=== PATIENT | female | born 1950 | race Caucasian/White ===

== ENCOUNTER → 2017-08-07 | Outpatient (CLI) | payer BC ==
[~2017-08-07] MED LIST: ACET-1138 PO; CALC-20 PO; OMEP20CA9 PO; RXC5 PO; TMPOPS15 OPB
--- NOTE | 2017-08-08 15:59 | MAMMOGRAPHY REPORT ---
BILATERAL DIGITAL SCREENING MAMMOGRAM TOMOSYNTHESIS WITH CAD: 08/07/2017 CLINICAL HISTORY: Routine screening examination. TECHNIQUE: Breast tomosynthesis in addition to standard 2D mammography was performed. Current study was also evaluated with a Computer Aided Detection (CAD) system. COMPARISON: Comparison is made to exams dated: 06/27/2016 mammogram, 11/17/2014 mammogram, 09/16/2013 m ammogram, 10/09/2011 mammogram, 05/25/2010 mammogram, and 09/29/2009 mammogram - [facility]ter. BREAST COMPOSITION: The tissue of both breasts is heterogeneously dense, which may obscure small mas ses. FINDINGS: There are scattered stable benign-appearing microcalcifications in the breasts. No suspici ous mass, architectural distortion or cluster of new, suspicious microcalcifications is seen. IMPRESSION: ACR BI-RADS CATEGORY 1: NEGATIVE There is no mammographic evidence of malignancy. A 1 year screening mammogram is recommended. The pa tient will receive written notification of the results. Approximately 10% of breast cancers are not detected with mammography. A negative mammographic report should not delay biopsy if a clinically suggestive mass is present. Chrissy Garibay M.D. ay/:08/07/2017 17:20:31 Document Analyst: Brooke TEIXEIRA(Juan M)(M), [facility] letter sent: Normal 1/2 BI-RADS Code: ACR BI-RADS Category 1: Negative
== END | disposition home or self-care (01) ==
LOC: C.MAMM 13:43
PROVIDERS: ATTEND Internal Medicine
DX: M85.89 Other specified disorders of bone density and structure, multiple sites (principal); Z12.31 Encounter for screening mammogram for malignant neoplasm of breast

== ENCOUNTER → 2017-12-18 | Outpatient (CLI) | payer BC ==
[2017-12-18 12:24] LABS: BLOOD UREA NITROGEN 10 mg/dl (7-18); GLUCOSE 98 mg/dl (70-99)
[2017-12-18 12:25] LABS: ALT/SGPT 19 U/L (12-78); AST/SGOT 11 U/L (15-37); CALCIUM 9.2 mg/dl (8.5-10.1); CARBON DIOXIDE 27 mmol/L (21-32); CHOLESTEROL 205 mg/dl (0-200); CREATININE 0.79 mg/dl (0.60-1.20); POTASSIUM 4.4 mmol/L (3.5-5.1); SODIUM 139 mmol/L (136-145)
[2017-12-18 12:27] LABS: ALKALINE PHOSPHATASE 87 U/L (45-117); LDL CHOLESTEROL CALCULATED 116 mg/dl; TOTAL PROTEIN 7.1 gm/dl (6.4-8.2)
== END | disposition home or self-care (01) ==
LOC: C.LAB1850 11:15
PROVIDERS: ATTEND Internal Medicine
DX: E78.5 Hyperlipidemia, unspecified (principal); E55.9 Vitamin D deficiency, unspecified